=== PATIENT | female | born 1985 | race African-American/Black ===

== ENCOUNTER 2019-04-05 14:04 | Emergency (ER) | payer OTHER ==
[~2019-04-05] VITALS: Ht 171.4 cm; Wt 92.0 kg
[~2019-04-05 14:04] MED LIST: CIPRO500 MG OR; LORTAB 5 OR; NO HOME MEDS
[2019-04-05] MEDS ORDERED: PREDNISONE20 MG PO (14:45)
[2019-04-05] MEDS ORDERED: FLEXERIL5 MG PO (14:45)
[2019-04-05 14:57] VITALS: BP 120/74
== END 2019-04-05 14:45 | disposition home or self-care (01) ==
LOC: ED 14:04
DX: S29.012A Strain of muscle and tendon of back wall of thorax, initial encounter (principal); S46.911A Strain of unspecified muscle, fascia and tendon at shoulder and upper arm level, right arm, initial encounter; X58.XXXA Exposure to other specified factors, initial encounter; Y93.89 Activity, other specified; Y92.89 Other specified places as the place of occurrence of the external cause

== ENCOUNTER 2019-06-07 20:07 | Emergency (ER) | payer OTHER ==
[~2019-06-07] VITALS: Ht 175.3 cm; Wt 93.2 kg
[~2019-06-07 20:07] MED LIST changes: +FLEXERIL5 MG PO; +PREDNISONE20 MG PO
[2019-06-07 20:37] LABS: HEMATOCRIT 37.2 % (37.0-47.0); IMMATURE GRANULOCYTES 0.2 % (0.0-5.0); MEAN CELL VOLUME 85.9 fL CALC (80.0-100.0); MEAN CORPUSCULAR HGB 27.7 pG CALC (26.0-32.0); MEAN CORPUSCULAR HGB CONC 32.3 g/L CALC (32.0-36.0); NEUT# 4.83 thou/uL (2.00-7.15); RED BLOOD COUNT 4.33 mill/uL (4.20-5.60); RED CELL DISTRI WIDTH 13.5 % (11.5-15.5)
[2019-06-07 21:20] VITALS: BP 132/77
== END 2019-06-07 21:55 | disposition home or self-care (01) ==
LOC: ED 20:07
PROVIDERS: Family Medicine
DX: B34.9 Viral infection, unspecified (principal)

== ENCOUNTER 2019-06-10 10:57 | Emergency (ER) | payer OTHER ==
[~2019-06-10] VITALS: Ht 175.3 cm; Wt 93.2 kg
[2019-06-10 11:35] VITALS: BP 118/76
== END 2019-06-10 11:35 | disposition home or self-care (01) ==
LOC: ED 10:57
DX: B30.9 Viral conjunctivitis, unspecified (principal)

== ENCOUNTER 2019-06-28 23:27 | Emergency (ER) | payer OTHER ==
[~2019-06-28] VITALS: Ht 175.3 cm; Wt 93.0 kg
[2019-06-29 00:38] VITALS: BP 124/78
== END 2019-06-29 01:00 | disposition home or self-care (01) | DRG 605 ==
LOC: ED 23:27
DX: S30.810A Abrasion of lower back and pelvis, initial encounter (principal); W26.8XXA Contact with other sharp object(s), not elsewhere classified, initial encounter

== ENCOUNTER 2019-08-12 | Emergency (ER) | payer OTHER ==
[2019-08-12 23:01] LABS: HEMATOCRIT 40.8 % (37.0-47.0); HEMOGLOBIN 12.9 g/dl (12.0-16.0); IMMATURE GRANULOCYTES 0.2 % (0.0-5.0); MEAN CORPUSCULAR HGB 27.5 pG CALC (26.0-32.0); MEAN CORPUSCULAR HGB CONC 31.6 g/L CALC (32.0-36.0); NEUT# 5.05 thou/uL (2.00-7.15); RED BLOOD COUNT 4.69 mill/uL (4.20-5.60); RED CELL DISTRI WIDTH 14.3 % (11.5-15.5)
[2019-08-12 23:14] LABS: URINE BILIRUBIN - DIPSTICK NEGATIVE (NEGATIVE); URINE COLOR YELLOW; URINE GLUCOSE - DIPSTICK NEGATIVE (NEGATIVE); URINE KETONE NEGATIVE (NEGATIVE); URINE LEUK ESTERASE NEGATIVE (NEGATIVE); URINE NITRITE - DIPSTICK NEGATIVE (Negative); URINE PH 6.5 (4.5-8.0); URINE PROTEIN - DIPSTICK NEGATIVE (NEG-TRACE); URINE UROBILINOGEN - DIPSTICK 0.2 E.U./dL (0.2)
[2019-08-12 23:16] LABS: URINE BLOOD DIPSTICK TRACE (NEGATIVE)
[2019-08-12 23:28] LABS: ALKALINE PHOSPHATASE 114 u/l (38-126); ANION GAP 11 (6-22 (CALC)); BILIRUBIN, TOTAL 0.2 mg/dL (0.0-1.4); BUN 13 mg/dL (7-17); BUN/CREATININE RATIO 21 (12-20 (CALC)); CARBON DIOXIDE 29 mmol/l (22-30); CHLORIDE 102 mmol/l (95-108); CREATININE 0.6 mg/dL (0.5-1.0); GFR > 60 ML/MIN (>=60 (CALC)); GFR FOR AFR.AMER. > 60 ML/MIN (>=60 (CALC)); POTASSIUM 3.6 mmol/l (3.5-5.1); SGOT/AST 22 u/l (14-36); SODIUM 139 mmol/l (137-146)
[2019-08-12 23:36] LABS: ALBUMIN 3.9 g/dL (3.2-5.0); TOTAL PROTEIN 7.7 g/dL (6.3-8.2)
[2019-08-12] MEDS ORDERED: ULTRAM50 M1 PO (23:49)
[2019-08-12] MEDS ORDERED: FLEXERIL PO (23:49)
== END 2019-08-13 00:02 | disposition home or self-care (01) | DRG 93 ==
PROVIDERS: Emergency Medicine
DX: R25.2 Cramp and spasm (principal)

== ENCOUNTER 2019-09-08 | Emergency (ER) | payer OTHER ==
[~2019-09-08] MED LIST changes: +FLEXERIL PO; +ULTRAM50 M1 PO
[2019-09-08] MEDS ORDERED: TESSALON PER100 MG PO (21:25)
[2019-09-08] MEDS ORDERED: ZITHROMAX500 MG PO (21:25)
== END 2019-09-08 21:50 | disposition home or self-care (01) | DRG 203 ==
DX: J20.9 Acute bronchitis, unspecified (principal)

== ENCOUNTER 2019-12-09 | Emergency (ER) | payer OTHER ==
[~2019-12-09] MED LIST changes: +TESSALON PER100 MG PO; +ZITHROMAX500 MG PO
[2019-12-09] MEDS ORDERED: AMOXICILLIN500 MG PO (20:41)
[2019-12-09] MEDS ORDERED: LORTAB 1010 MG PO (20:41)
== END 2019-12-09 21:18 | disposition home or self-care (01) | DRG 159 ==
DX: K04.7 Periapical abscess without sinus (principal)